=== PATIENT | male | born 1935 | race Caucasian/White ===

== ENCOUNTER 2020-02-02 09:15 | Inpatient (IN) | payer OTHER ==
[~2020-02-02] VITALS: Ht 188 cm; Wt 65.9 kg
[2020-02-02 09:19] VITALS: Ht 188 cm; Wt 65.9 kg
[2020-02-02 10:14] LABS: BASOPHIL % 0.6 % (0-2); PLATELET COUNT 232 x10^3mcL (130-400)
[2020-02-02 10:15] LABS: CALCIUM 9.5 mg/dL (8.5-10.1); CARBON DIOXIDE 29.1 mmol/L (21-32); CHLORIDE SERUM 104 mmol/L (98-107); CREATININE SERUM 0.9 mg/dL (0.7-1.3); GLUCOSE SERUM 104 mg/dL (74-106); POTASSIUM SERUM 4.6 mmol/L (3.5-5.1); SODIUM SERUM 138 mmol/L (136-145)
[2020-02-02 10:17] LABS: RED CELL DISTRIBUTION WIDTH 14.8 % (11.5-14.5)
[2020-02-02 10:20] LABS: ALBUMIN 3.2 g/dL (3.4-5.0); ALKALINE PHOSPHATASE 83 U/L (46-116); ALT/SGPT 22 U/L (16-63); AST/SGOT 24 U/L (15-37); BILIRUBIN TOTAL 0.5 mg/dL (0.20-1.00)
[2020-02-02 17:21] VITALS: BP 135/75
[2020-02-02 20:52] VITALS: BP 129/64
[2020-02-02 23:29] VITALS: BP 129/64
[2020-02-03 05:33] VITALS: BP 131/59
[2020-02-03 06:51] LABS: PLATELET COUNT 216 x10^3mcL (130-400)
[2020-02-03 07:12] LABS: BASOPHIL % 0 % (0-2); RED CELL DISTRIBUTION WIDTH 14.7 % (11.5-14.5)
[2020-02-03 07:17] LABS: CALCIUM 9.3 mg/dL (8.5-10.1); CARBON DIOXIDE 25.5 mmol/L (21-32); CHLORIDE SERUM 104 mmol/L (98-107); GLUCOSE SERUM 137 mg/dL (74-106); MAGNESIUM 2.1 mg/dL (1.8-2.4); PHOSPHOROUS 3.1 mg/dL (2.5-4.9); POTASSIUM SERUM 3.6 mmol/L (3.5-5.1); SODIUM SERUM 141 mmol/L (136-145)
[2020-02-03 08:04] VITALS: BP 145/107
[2020-02-03 12:19] VITALS: BP 142/71
[2020-02-03 16:11] VITALS: BP 132/77
[2020-02-03 22:35] VITALS: BP 143/77
[2020-02-04 06:03] VITALS: BP 139/61
[2020-02-04 07:14] LABS: BASOPHIL % 0.1 % (0-2); PLATELET COUNT 213 x10^3mcL (130-400)
[2020-02-04 07:16] LABS: RED CELL DISTRIBUTION WIDTH 14.9 % (11.5-14.5)
[2020-02-04 08:35] LABS: CALCIUM 9.9 mg/dL (8.5-10.1); CARBON DIOXIDE 23.5 mmol/L (21-32); CHLORIDE SERUM 114 mmol/L (98-107); CREATININE SERUM 1.5 mg/dL (0.7-1.3); GLUCOSE SERUM 92 mg/dL (74-106); MAGNESIUM 2.7 mg/dL (1.8-2.4); PHOSPHOROUS 3.2 mg/dL (2.5-4.9); POTASSIUM SERUM 3.8 mmol/L (3.5-5.1); SODIUM SERUM 141 mmol/L (136-145)
[2020-02-04 10:09] LABS: C REACTIVE PROTEIN 12.4 mg/dL (<=0.9)
[2020-02-04 12:00] VITALS: BP 141/71
[2020-02-04 17:19] VITALS: BP 135/75
[2020-02-04 21:36] VITALS: BP 136/53
[2020-02-05 05:42] VITALS: BP 146/68
[2020-02-05 07:13] LABS: PLATELET COUNT 215 x10^3mcL (130-400)
[2020-02-05 07:39] LABS: BASOPHIL % 0 % (0-2); RED CELL DISTRIBUTION WIDTH 14.7 % (11.5-14.5)
[2020-02-05 07:44] LABS: CALCIUM 9.2 mg/dL (8.5-10.1); CARBON DIOXIDE 20.4 mmol/L (21-32); CHLORIDE SERUM 111 mmol/L (98-107); CREATININE SERUM 2.2 mg/dL (0.7-1.3); GLUCOSE SERUM 94 mg/dL (74-106); MAGNESIUM 2.7 mg/dL (1.8-2.4); PHOSPHOROUS 4.2 mg/dL (2.5-4.9); SODIUM SERUM 144 mmol/L (136-145)
[2020-02-05 10:06] VITALS: BP 126/71
[2020-02-05 13:38] VITALS: BP 139/78
[2020-02-05 15:56] VITALS: BP 126/71
[2020-02-05 19:02] VITALS: BP 141/71
[2020-02-05 20:53] VITALS: BP 129/78
[2020-02-06 06:13] VITALS: BP 124/65
[2020-02-06 08:13] VITALS: BP 127/70
[2020-02-06 08:22] LABS: CALCIUM 8.7 mg/dL (8.5-10.1); CARBON DIOXIDE 21.7 mmol/L (21-32); CHLORIDE SERUM 106 mmol/L (98-107); CREATININE SERUM 0.8 mg/dL (0.7-1.3); GLUCOSE SERUM 116 mg/dL (74-106); MAGNESIUM 1.9 mg/dL (1.8-2.4); PHOSPHOROUS 2.3 mg/dL (2.5-4.9); POTASSIUM SERUM 4.1 mmol/L (3.5-5.1); SODIUM SERUM 135 mmol/L (136-145)
[2020-02-06 08:52] LABS: BASOPHIL % 0.2 % (0-2); PLATELET COUNT 236 x10^3mcL (130-400); RED CELL DISTRIBUTION WIDTH 18.5 % (11.5-14.5)
[2020-02-06 12:11] VITALS: BP 131/72
[2020-02-06] MEDS ORDERED: LEV250 PO (16:07)
[2020-02-06] MEDS ORDERED: LEVAQUIN750 MG PO (16:08)
[2020-02-06] MEDS ORDERED: PROAIR RES117 MCG/Ac INH (16:09)
[2020-02-06] MEDS ORDERED: MUCINEX600 MG PO (16:10)
[2020-02-06 16:47] VITALS: BP 131/72
== END 2020-02-06 17:44 | disposition home or self-care (01) | DRG 190 ==
LOC: ED 09:15 → DU 12:37 → MU 02-05 10:57
PROVIDERS: Emergency Medicine; ADMIT Internal Medicine; ATTEND Internal Medicine
PROC: 0HBRXZZ Excision of Toe Nail, External Approach (ICD-10-PCS; principal; 2020-02-05)
PROC: 0HBRXZZ Excision of Toe Nail, External Approach (ICD-10-PCS; 2020-02-05)
PROC: 0HBRXZZ Excision of Toe Nail, External Approach (ICD-10-PCS; 2020-02-05)
PROC: 0HBRXZZ Excision of Toe Nail, External Approach (ICD-10-PCS; 2020-02-05)
PROC: 0HBRXZZ Excision of Toe Nail, External Approach (ICD-10-PCS; 2020-02-05)
PROC: 0HBRXZZ Excision of Toe Nail, External Approach (ICD-10-PCS; 2020-02-05)
PROC: 0HBRXZZ Excision of Toe Nail, External Approach (ICD-10-PCS; 2020-02-05)
PROC: 0HBRXZZ Excision of Toe Nail, External Approach (ICD-10-PCS; 2020-02-05)
PROC: 0HBRXZZ Excision of Toe Nail, External Approach (ICD-10-PCS; 2020-02-05)
PROC: 0HBRXZZ Excision of Toe Nail, External Approach (ICD-10-PCS; 2020-02-05)
DX: J44.1 Chronic obstructive pulmonary disease with (acute) exacerbation (principal); J96.01 Acute respiratory failure with hypoxia; S22.41XA Multiple fractures of ribs, right side, initial encounter for closed fracture; J98.11 Atelectasis; G93.40 Encephalopathy, unspecified; J90 Pleural effusion, not elsewhere classified; Z60.2 Problems related to living alone; S01.01XA Laceration without foreign body of scalp, initial encounter; W10.8XXA Fall (on) (from) other stairs and steps, initial encounter; Y93.01 Activity, walking, marching and hiking; Y92.89 Other specified places as the place of occurrence of the external cause; Y99.8 Other external cause status; F17.210 Nicotine dependence, cigarettes, uncomplicated; Z20.828 Contact with and (suspected) exposure to other viral communicable diseases; I87.2 Venous insufficiency (chronic) (peripheral); B35.1 Tinea unguium; F41.9 Anxiety disorder, unspecified; Z71.6 Tobacco abuse counseling
CPT/HCPCS: 36600; 85378; 90715; 92526-GN; 92610-GN; 94150; 97110-GP; G0378; J1200; J1644; J1956; J2270; J2405; J2920; J2930; J3535; J7030; J7512; Q0092; Q9967; U0003-CS